=== PATIENT | female | born 1990 | race Caucasian/White ===

== ENCOUNTER 2017-03-16 17:37 | Emergency (ER) | payer MEDICAID ==
[~2017-03-16] VITALS: Ht 160 cm; Wt 63.0 kg
[~2017-03-16 17:37] MED LIST: DOCU-144 PO; FERR325C PO; IBUP-1542 PO; PREN1TAB62 PO
[2017-03-16 17:53] VITALS: Ht 160 cm; Wt 63.0 kg
[2017-03-16] MEDS ORDERED: IBUPROFEN 800 MG TAB PO ONE (18:30)
[2017-03-16] MEDS ORDERED: CEPHALEXIN 500 MG CAP PO ONE (18:30)
[2017-03-16 18:50] LABS: URINE BLOOD (Dip) POC 1+ (NEGATIVE)
[2017-03-16] MEDS ORDERED: IBUP-1542 PO (19:10)
[2017-03-16] MEDS ORDERED: CEPH-443 PO (19:10)
--- NOTE | 2017-03-16 19:49 | ERD ---
ER Documentation Chief Complaint Chief Complaint dysuria x 1 week HPI Patient is a 26-year-old female with no medical problems who presents with pain with urination. She has had pain with urination for 1 week. She had subjective fever but did not take her temperature at home. She has body wide pain. She is not . She tried "flanax". She has a history of UTI and says this feels the same. Upon review of old medical records this is the patient's fifth visit to the ER since 2016. She does not currently have a primary doctor. ROS All systems reviewed and are negative except as per history of present illness. Medications Home Meds Active Scripts Ibuprofen* (Motrin*) 600 Mg Tab, 600 MG PO Q6H Y for PAIN AND OR ELEVATED TEMP, #30 TAB Prov:CESAR GERMAN MD 03/16/17 Cephalexin* (Keflex*) 500 Mg Capsule, 500 MG PO QID for 7 Days, CAP Prov:CESAR GERMAN MD 03/16/17 Reported Medications Docusate Sodium* (Colace*) 100 Mg Capsule, 100 MG PO BID, #60 CAP 12/13/15 Ibuprofen* (Motrin*) 600 Mg Tab, 600 MG PO QID, TAB 12/13/15 Ferrous Sulfate (Iron) 325 Mg Capsr, 325 MG PO 09/07/15 Vit-Iron Fumarate-FA ( Vitamin Tablet) 1 Each Tablet, 1 TAB PO DAILY, TAB 09/07/15 Allergies Allergies: Coded Allergies: No Known Allergy (Unverified , 09/07/15) PMhx/Soc Medical and Surgical Hx: pt denies Medical Hx, pt denies Surgical Hx History of Surgery: No Anesthesia Reaction: No Hx Neurological Disorder: No Hx Respiratory Disorders: No Hx Cardiac Disorders: No Hx Psychiatric Problems: No Hx Miscellaneous Medical Probl: No Hx Alcohol Use: No Hx Substance Use: No Hx Tobacco Use: No Smoking Status: Never smoker FmHx Family History: No diabetes Physical Exam Vitals Vital Signs Date Time Temp Pulse Resp B/P Pulse Ox O2 Delivery O2 Flow Rate FiO2 03/16/17 17:53 100.5 120 20 133/79 100 Physical Exam Const: No acute distress Head: Atraumatic Eyes: Normal Conjunctiva ENT: Normal External Ears, Nose and Mouth. Neck: Full range of motion..~ No meningismus. Resp: Clear to auscultation bilaterally Cardio: Tachycardic rate without murmur Abd: Soft, non tender, non distended. Normal bowel sounds Skin: No petechiae or rashes Back: No midline or flank tenderness Ext: No cyanosis, or edema Neur: Awake and alert Psych: Normal Mood and Affect Results 24 hrs Laboratory Tests Test 03/16/17 18:50 Bedside Urine pH (LAB) 7.0 Bedside Urine Protein (LAB) Negative Bedside Urine Glucose (UA) Negative Bedside Urine Ketones (LAB) Negative Bedside Urine Blood 1+ Bedside Urine Nitrite (LAB) Negative Bedside Urine Leukocyte Esterase (L 2+ Current Medications Medications (Trade) Dose Ordered Sig/Vern Route PRN Reason Start Time Stop Time Status Last Admin Dose Admin Ibuprofen (Motrin) 800 mg ONCE ONCE PO 03/16/17 18:30 03/16/17 18:31 DC 03/16/17 18:44 Cephalexin (Keflex) 500 mg ONCE ONCE PO 03/16/17 18:30 03/16/17 18:31 DC 03/16/17 18:44 Procedures/MDM Dip is positive for infection. Urine test is negative. Patient is a 26-year-old female who presents with dysuria and fever and tachycardia. She was found to have acute cystitis. She is otherwise well- appearing and I doubt sepsis at this time. I believe outpatient management is appropriate. She was given ibuprofen for fever and Keflex to treat UTI. She will be given a prescription for both Keflex and ibuprofen. She will need to follow-up closely with a primary doctor the local clinics within 24-48 hours for reevaluation. She can return sooner for any worsening symptoms. I doubt or ectopic . Departure Diagnosis: Primary Impression: Cystitis Additional Impression: Dysuria Condition: Fair Patient Instructions: Cystitis [facility] Usted se aguilar hecho un examen mdico de control que le indica que no est en [place] condicin que requiera tratamiento urgente en el Departamento de Emergencia. Un estudio ms profundo y el tratamiento de johnson condicin pueden esperar sin ningn riesgo hasta que usted sea atendida/o en el consultorio de johnson mdico o [place] cl nan. Es responsabilidad suya arreglar [place] cindy para el seguimiento del josé miguel. MANEJO DE CONDICIONES NO URGENTES EN EL FUTURO 1) Si usted tiene un mdico de atencin primaria: Usted debera llamar a johnson mdico de atencin primaria antes de venir al departamento de emergencia. Despus de las horas de consultorio, johnson doctor o johnson asociado/a est disponible por telfono. El mdico o enfermero de nilesh en el servicio telefnico puede asesorarle por wendy medio para atender el problema, o josé miguel contrario se puede programar [place] cindy. 2) Si usted no tiene un mdico de atencin primaria: Llame al mdico o clnica de referencia que aparece abajo amado las horas de consultorio para hacer [place] cindy para que le vean. CLINICAS: [place] [id number] [phone] [facility] [phone] [facility] [phone] [facility] [place] [id number] [phone] [place] [id number] [phone] [facility]. [phone] [address] Additional Instructions: Llame al doctor MAANA y nadia [place] CINDY PARA DENTRO DE 1-2 MENDOZA.Dgale a la secretaria que nosotros le instruimos hacer esta cindy.Avise o llame si johnson condicin se empeora antes de la cindy. Regresa aqui si peor o no mejor. CESAR GERMAN MD Mar 16, 2017 19:48
== END 2017-03-16 19:53 | disposition home or self-care (01) ==
LOC: FTE 17:37
DX: N30.90 Cystitis, unspecified without hematuria (principal)
CPT/HCPCS: 81003; Z7502; Z7610; 99283